=== PATIENT | female | born 1965 | race Caucasian/White ===

== ENCOUNTER 2017-02-07 16:40 | Inpatient (IN) | payer OTHER ==
[2017-02-07 17:52] VITALS: BMI 57.6
--- NOTE | 2017-02-07 19:35 | HP ---
COWS - Scale Resting Pulse: 4= OR > 121 Sweatin= Chills/Flushing Restless Observation: 3= Extraneous Movement Pupil Size: 0= Normal to Room Light Bone or Joint Aches: 2= Severe Diffuse Aches Runny Nose/ Eye Tearin= Nasal Congestion GI Upset > 30mins: 1= Stomach Cramp Tremor Observation: 1= Tremor [place], Not Seen Yawning Observation: 0= None Anxiety or Irritability: 1=Feels Anxious/Irritable Goose Flesh Skin: 0=Smooth Skin COWS Score: 14 CIWA Score - CIWA Score Nausea/Vomitin-Mild Nausea/No Vomiting Muscle Tremors: 3 Anxiety: 3 Agitation: 4-Moderately Restless Paroxysmal Sweats: 1-Minimal Palms Moist Orientation: 0-Oriented Tacttile Disturbances: 0-None Auditory Disturbances: 0-None Visual Disturbances: 0-None Headache: 0-None Present CIWA-Ar Total Score: 12 Admission ROS S - HPI Chief Complaint: WITHDRAWAL SX Allergies/Adverse Reactions: Allergies Allergy/AdvReac Type Severity Reaction Status Date / Time No Known Allergies Allergy Unverified 02/07/17 18:42 History of Present Illness: 51 YEARS OLD FEMALE WITH LONG HISTORY OF OPIOID XANAX NICOTINE DEPENDENCE HAS DIABETES II ASTHMA AND BIPOLAR II AMBULATE WITH WALKER IS ADMITTED TO DETOX Exam Limitations: No Limitations - Ebola screening Have you traveled outside of the country in the last 21 days: No (N) Have you had contact with anyone from an Ebola affected area: No Have you been sick,other than usual withdrawal symptoms: No Do you have a fever: No - Review of Systems Constitutional: Chills, Changes in sleep, Weight Stable EENT: reports: No Symptoms Reported Respiratory: reports: SOB with Exertion, Productive cough (WHITE) Cardiac: reports: No Symptoms Reported GI: reports: Nausea, Poor Fluid Intake, Indigestion, Abdominal cramping : reports: No Symptoms Reported Musculoskeletal: reports: Back Pain, Joint Pain, Muscle Pain, Muscle Weakness ( KNEE RIGHT), Neck Pain Integumentary: reports: No Symptoms Reported Neuro: reports: Tremors Endocrine: reports: No Symptoms Reported Hematology: reports: No Symptoms Reported Psychiatric: reports: Judgement Intact, Orientated x3, Anxious, Depressed Other Systems: Reviewed and Negative Patient History - Patient Medical History Hx Anemia: No Hx Asthma: Yes Hx Chronic Obstructive Pulmonary Disease (COPD): No Hx Cancer: No Hx Cardiac Disorders: No Hx Congestive Heart Failure: No Hx Hypertension: No Hx Hypercholesterolemia: No Hx Pacemaker: No HX Cerebrovascular Accident: No Hx Seizures: No Hx Dementia: No Hx Diabetes: Yes Hx Gastrointestinal Disorders: No Hx Liver Disease: No Hx Genitourinary Disorders: No Hx Sexually Transmitted Disorders: Yes (SYPHILIS 1983) Hx Renal Disease (ESRD): No Hx Thyroid Disease: No Hx Human Immunodeficiency Virus (HIV): No Hx Hepatitis C: No Hx Depression: No Hx Suicide Attempt: No Hx Bipolar Disorder: Yes Hx Schizophrenia: No - Patient Surgical History Past Surgical History: No Hx Neurologic Surgery: Yes (BACK 2014) Hx Cataract Extraction: No Hx Cardiac Surgery: No Hx Lung Surgery: No Hx Breast Surgery: No Hx Breast Biopsy: No Hx Abdominal Surgery: No Hx Appendectomy: No Hx Cholecystectomy: No Hx Genitourinary Surgery: No Hx Section: No Hx Orthopedic Surgery: Yes (RIGHT KNEE 2000) Hx Hysterectomy: No Anesthesia Reaction: No - PPD History Previous Implant?: Yes Documented Results: Negative w/proof Implanted On Prior R Admission?: No PPD to be Administered?: Yes - Reproductive History Patient is a Female of Child Bearing Age (11 -55 yrs old): Yes Last Menstrual Period: 02/07/15 Patient : No - Smoking Cessation Smoking history: Current every day smoker Have you smoked in the past 12 months: Yes Aproximately how many cigarettes per day: 40 Cigars Per Day: 0 Hx Chewing Tobacco Use: No Initiated information on smoking cessation: Yes 'Breaking Loose' booklet given: 02/07/17 - Substance & Tx. History Hx Alcohol Use: No Hx Substance Use: Yes Substance Use Type: Opiates, Tranquilizers Hx Substance Use Treatment: Yes (2009 [facility]) - Substances Abused Heroin Route: Inhalation Frequency: Daily Amount used: 15 BAGS Age of first use: 26 Date of Last Use: 02/06/17 Benzodiazepine (Klonopin) Route: Oral Frequency: Daily Amount used: 1 MG Age of first use: 46 Date of Last Use: 02/07/17 Family Disease History - Family Disease History Family Disease History: [place]: Mother, Respiratory: Father, Other: Father, Mother, Brother () Admission Physical Exam [facility] - Vital Signs Vital Signs: Vital Signs - 24 hr 08/15/17 17:49 Temperature 97.2 F L Pulse Rate 130 H Respiratory 20 Rate Blood Pressure 111/62 - Physical General Appearance: Yes: Appropriately Dressed, Mild Distress, Obese, Tremorous , Irritable, Sweating, Anxious HEENTM: Yes: Hearing grossly Normal, Normal ENT Inspection, Normocephalic, Normal Voice Respiratory: Yes: Chest Non-Tender, No Respiratory Distress, No Accessory Muscle Use, Wheezing Neck: Yes: Supple, Trachea in good position Breast: Yes: Breasts Symetrical Cardiology: Yes: Regular Rhythm, S1, S2, Tachycardia Abdominal: Yes: Normal Bowel Sounds, Non Tender, Soft Genitourinary: Yes: Within Normal Limits Back: Yes: Normal Inspection, Surgical Scar Musculoskeletal: Yes: Gait Steady, Muscle Pain (RIGHT KNEE), Muscle weakness Extremities: Yes: Non-Tender, Tremors Neurological: Yes: Alert, Normal Response, Depressed Affect Integumentary: Yes: Normal Color, Warm Lymphatic: Yes: Within Normal Limits - Diagnostic (1) Opioid dependence with withdrawal Current Visit: Yes Status: Acute (2) Nicotine dependence Current Visit: Yes Status: Acute Qualifiers: Nicotine product type: cigarettes Substance use status: in withdrawal Qualified Code(s): F17.213 - Nicotine dependence, cigarettes, with withdrawal (3) Bipolar II disorder Current Visit: Yes Status: Suspected (4) Walker as ambulation aid Current Visit: Yes Status: Chronic (5) Diabetes mellitus type II, controlled Current Visit: Yes Status: Chronic Qualifiers: Diabetes mellitus complication status: without complication Diabetes mellitus mcc insulin use: without mcc use Qualified Code(s): E11.9 - Type 2 diabetes mellitus without complications Comment: NO TREATMENT (6) Asthma Current Visit: Yes Status: Chronic Qualifiers: Asthma severity: mild persistent Asthma complication type: with status asthmaticus Qualified Code(s): J45.32 - Mild persistent asthma with status asthmaticus Cleared for Admission [facility] - Detox or Rehab [facility] Level of Care: Medically Managed Detox Regimen/Protocol: Methadone [facility] Breath Alcohol Content Breath Alcohol Content: 0 Urine Pregancy Test - Result Urine Test Results: Negative- NO Line Present Urine Drug Screen - Results Urine Drug Screen Results: OPI-Opiates, PCP-Phencyclidine, BZO-Benzodiazepines, MTD-Methadone
[2017-02-07] MEDS ORDERED: MAGNESIUM HYDROX 2400MG/30ML ORAL SUSPENSION 30 ML CUP PO PRN (19:47)
[2017-02-07] MEDS ORDERED: METHADONE HCL 10 MG TABLET (FOR DETOX USE ONLY) PO ONE ×3 (19:47→23:00)
[2017-02-07] MEDS ORDERED: guaiFENesin/D-METHORPHAN HB 10 ML UNIT-DOSE CUPS PO PRN (19:47)
[2017-02-07] MEDS ORDERED: MAG HYDROX/AL HYDROX/SIMETH 30 ML UNIT-DOSE CUP PO PRN (19:47)
[2017-02-07] MEDS ORDERED: NICOTINE POLACRILEX 4 MG GUM BC PRN (19:47)
[2017-02-07] MEDS ORDERED: diphenhydrAMINE HCL 50 MG CAPSULE PO PRN (19:47)
[2017-02-07] MEDS ORDERED: MENTHOL/PHENOL 1 EACH UD MM PRN (19:47)
[2017-02-07] MEDS ORDERED: ACETAMINOPHEN 325 MG TABLET (FP) PO PRN (19:47)
[2017-02-07] MEDS ORDERED: MAGNESIUM CITRATE 300 ML BOTTLE PO PRN (19:47)
[2017-02-07] MEDS ORDERED: P-EPHED 60MG/TRIPROLIDI 2.5MG TABLET PO PRN (19:47)
[2017-02-07] MEDS ORDERED: LOPERAMIDE HCL 2 MG CAPSULE PO PRN (19:47)
[2017-02-07] MEDS ORDERED: ALBUTEROL SO4 6.7 GM HFA INHALER IH PRN (19:49)
[2017-02-07] MEDS: diazePAM 5 MG TABLET PO PRN (22:03)
[2017-02-07] MEDS: BUDESONIDE/FORMETEROL FUMARATE 80/4.5 mcg INHALER IH SCH (22:03)
[2017-02-07] MEDS: THIAMINE HCL 100 MG TABLET (FP) PO SCH (22:05)
[2017-02-07 23:20] LABS: URINE APPEARANCE CLOUDY; URINE BLOOD NEGATIVE (NEGATIVE); URINE COLOR AMBER; URINE GLUCOSE (UA) NEGATIVE (NEGATIVE); URINE KETONE TRACE (NEGATIVE); URINE LEUK ESTERASE TRACE (NEGATIVE); URINE NITRITE NEGATIVE (NEGATIVE)
[2017-02-07 23:28] LABS: URINE PROTEIN 2+ (NEGATIVE)
[2017-02-07 23:56] LABS: URINE BACTERIA MODERATE /hpf (NONE SEEN); URINE HYALINE CAST 69 /lpf; URINE MUCUS MANY; URINE RBC 11 /hpf (0-3); URINE WBC 39 /hpf (3-5); YEAST FEW
[2017-02-08] MEDS ORDERED: METHADONE HCL 10 MG TABLET (FOR DETOX USE ONLY) PO ONE (10:00)
--- NOTE | 2017-02-08 10:14 | CONSULT ---
[facility] Psychiatric Consult - Data Date of interview: 02/08/17 Admission source: [facility] Identifying data: This is 51 years old female , obise, ambulating with cane, with psychiatric hospitalization history, history of Bipolar Disorder, intoxicated wioth: Heroin Klonopin and Nicotine Substance Abuse History: - Smoking Cessation. Smoking history: Current every day smoker. Have you smoked in the past 12 months: Yes. Aproximately how many cigarettes per day: 40. Cigars Per Day: 0. Hx Chewing Tobacco Use: No. Initiated information on smoking cessation: Yes. 'Breaking Loose' booklet given : 02/07/17. - Substance & Tx. History. Hx Alcohol Use: No. Hx Substance Use: Yes. Substance Use Type: Opiates, Tranquilizers. Hx Substance Use Treatment: Yes (2009). - Substances Abused. Heroin. Route: Inhalation. Frequency: Daily. Amount used: 15 BAGS. Age of first use: 26. Date of Last Use: 02/06/17. Benzodiazepine (Klonopin). Route: Oral. Frequency: Daily. Amount used: 1 MG. Age of first use: 46. Date of Last Use: 02/07/17 Medical History: Asthma, Obesity morbid, DM-2, Psychiatric History: Patient reports to carry [id number] disorder, reports most recent posychiatrioc admnission on at [facility] for safety, reports cirrently taking: Lamictal 50mg poqd. EffexorXL 225mg poqd Physical/Sexual Abuse/Trauma History: Denies Additional Comment: Lamictal 50mg poqd. EffexorXL 225mg poqd Mental Status Exam - Mental Status Exam Alert and Oriented to: Person Cognitive Function: Fair Patient Appearance: Unkempt Mood: Sad Affect: Flat Patient Behavior: Sedated Speech Pattern: Delayed Voice Loudness: Mildly Soft/Quiet Thought Process: Goal Oriented Thought Disorder: Being Controlled Hallucinations: Denies Suicidal Ideation: Denies Homicidal Ideation: Denies Insight/Judgement: Fair Sleep: Difficulty falling asleep Appetite: Weight gain Muscle strength/Tone: Mild Hypotonicity Gait/Station: Deferred Additional Comments: Lamictal 50mg poqd. EffexorXL 225mg poqd Psychiatric Findings - Problem List ([place] 1, 2,3) (1) Nicotine dependence Current Visit: Yes Status: Acute Qualifiers: Nicotine product type: cigarettes Substance use status: in withdrawal Qualified Code(s): F17.213 - Nicotine dependence, cigarettes, with withdrawal (2) Opioid dependence with withdrawal Current Visit: Yes Status: Acute (3) Bipolar II disorder Current Visit: Yes Status: Suspected (4) Benzodiazepine abuse Current Visit: Yes Status: Acute (5) Drug-induced mood disorder Current Visit: Yes Status: Acute - Initial Treatment Plan Initial Treatment Plan: Lamictal 50mg poqd. EffexorXL 225mg poqd
[2017-02-08 10:40] LABS: MCH 24.9 pg (25.7-33.7); MCHC 31.4 g/dl (32.0-36.0); MEAN CELL VOLUME 79.1 fl (80-96); MEAN PLT VOLUME 8.1 fl (7.5-11.1); PLATELET COUNT 261 K/MM3 (134-434); RDW 15.3 % (11.6-15.6); WHITE BLOOD COUNT 11.2 K/mm3 (4.0-10.0)
[2017-02-08 10:43] LABS: ALK PHOS 148 U/L (45-117); ANION GAP 5 (8-16); BILIRUBIN,TOTAL 0.4 mg/dL (0.2-1.0); CALCIUM 8.6 mg/dL (8.5-10.1); CO2 34 mmol/L (21-32); CREATININE 0.7 mg/dL (0.55-1.02); GLUCOSE,RANDOM 125 mg/dL (74-106); SGOT/AST 9 U/L (15-37); SGPT/ALT 10 U/L (12-78); TOT PROT 6.3 g/dl (6.4-8.2)
[2017-02-08] MEDS: ASPIRIN 81 MG CHEWABLE TABLETS PO SCH (10:44)
[2017-02-08] MEDS: BUDESONIDE/FORMETEROL FUMARATE 80/4.5 mcg INHALER IH SCH ×2 (10:44→22:43)
[2017-02-08] MEDS: PRENATAL VITAMINS W/ FOLIC ACID TABLET (FP) PO SCH (10:44)
[2017-02-08] MEDS: lamoTRIgine 25 MG TABLET PO SCH (10:46)
[2017-02-08] MEDS: diazePAM 5 MG TABLET PO PRN ×2 (10:46→22:43)
[2017-02-08] MEDS: NICOTINE 21 MG/24 HOURS TOPICAL PATCH TD SCH (10:47)
[2017-02-08] MEDS ORDERED: IBUPROFEN 400 MG TABLET (FP) PO PRN (11:02)
--- NOTE | 2017-02-08 11:15 | PN ---
[facility] CIWA - CIWA Score Nausea/Vomitin-No Nausea/No Vomiting Muscle Tremors: 4-Moderate,w/Arms Extend Anxiety: 3 Agitation: 4-Moderately Restless Paroxysmal Sweats: 3 Orientation: 0-Oriented Tacttile Disturbances: 0-None Auditory Disturbances: 0-None Visual Disturbances: 0-None Headache: 0-None Present CIWA-Ar Total Score: 14 [facility]HS COWS - Scale Resting Pulse: 2= [place] 101-120 Sweatin=Flushed/Facial Moisture Restless Observation: 1= Difficult to Sit Still Pupil Size: 0= Normal to Room Light Bone or Joint Aches: 2= Severe Diffuse Aches Runny Nose/ Eye Tearin= Runny Nose/Eyes GI Upset > 30mins: 0= None Tremor Observation of Outstretched Hands: 2= Slight Tremor Visible Yawning Observation: 0= None Anxiety or Irritability: 2=Irritable/Anxious Goose Flesh Skin: 3=Piloerection COWS Score: 16 S Progress Note (SOAP) Subjective: chronic body ache sweats shakes interrupted sleep agitation teary eyes Objective: 02/08/17 11:11 Vital Signs Temperature 97.9 F 02/08/17 10:00 Pulse Rate 102 02/08/17 00:00 Respiratory Rate 20 02/08/17 10:00 Blood Pressure 133/76 02/08/17 10:00 O2 Sat by Pulse Oximetry (%) Laboratory Tests 02/07/17 02/08/17 02/08/17 23:11 05:22 07:00 WBC 11.2 H RBC 4.19 Hgb 10.4 L Hct 33.1 MCV 79.1 L MCH 24.9 L MCHC 31.4 L RDW 15.3 Plt Count 261 MPV 8.1 Sodium Potassium Chloride Carbon Dioxide Anion Gap BUN Creatinine Creat Clearance w eGFR POC Glucometer 138 Random Glucose Calcium Total Bilirubin AST ALT Alkaline Phosphatase Total Protein Albumin Urine Color Adela Urine Appearance Cloudy Urine pH 5.0 Urine Protein 2+ H Urine Glucose (UA) Negative Urine Ketones Trace H Urine Blood Negative Urine Nitrite Negative Urine Bilirubin 4.0 Urine Urobilinogen 2.0 H Ur Leukocyte Esterase Trace Urine RBC 11 Urine WBC 39 Ur Epithelial Cells Many Urine Bacteria Moderate Hyaline Casts 69 Urine Mucus Many Urine Yeast Few 02/08/17 07:00 WBC RBC Hgb Hct MCV MCH MCHC RDW Plt Count MPV Sodium 140 Potassium 4.1 Chloride 101 Carbon Dioxide 34 H Anion Gap 5 L BUN 12 Creatinine 0.7 Creat Clearance w eGFR > 60 POC Glucometer Random Glucose 125 H Calcium 8.6 Total Bilirubin 0.4 AST 9 L ALT 10 L Alkaline Phosphatase 148 H Total Protein 6.3 L Albumin 3.0 L Urine Color Urine Appearance Urine pH Urine Protein Urine Glucose (UA) Urine Ketones Urine Blood Urine Nitrite Urine Bilirubin Urine Urobilinogen Ur Leukocyte Esterase Urine RBC Urine WBC Ur Epithelial Cells Urine Bacteria Hyaline Casts Urine Mucus Urine Yeast repeat u/a awake/alert ambulating with walker safely no acute distress Assessment: 02/08/17 11:13 withdrawal sx Plan: continue detox increase fluids lidocaine patch motrin 800mg prn flexiril 10mg prn analgesic balm clondine 0.1mg bid with parameters
[2017-02-08] MEDS: cloNIDine HCL 0.1 MG TABLET PO SCH ×2 (12:54→22:43)
[2017-02-08] MEDS: VENLAFAXINE HCL 75 MG E.R. CAPSULES (FP) PO SCH (12:54)
[2017-02-08] MEDS: CYCLOBENZAPRINE HCL 10 MG TABLET (FP) PO PRN ×2 (12:54→22:45)
[2017-02-08] MEDS: VENLAFAXINE HCL 150 MG E.R. CAPSULE PO SCH (12:54)
[2017-02-08] MEDS: LIDOCAINE 5% TOPICAL PATCH TP SCH (12:54)
[2017-02-08] MEDS: INSULIN SLIDING SCALE (NOVOLOG) 1 VIAL SQ SCH (17:11)
--- NOTE | 2017-02-08 20:01 | EKG ---
Test Reason : Blood Pressure : / mmHG Vent. Rate : 119 BPM Atrial Rate : 119 BPM P-R Int : 156 ms QRS Dur : 076 ms QT Int : 322 ms P-R-T Axes : 048 058 053 degrees QTc Int : 452 ms SINUS TACHYCARDIA OTHERWISE NORMAL ECG WHEN COMPARED WITH ECG OF 26-JUL-2004 13:32, VENT. RATE HAS INCREASED BY 41 BPM NONSPECIFIC T WAVE ABNORMALITY NOW EVIDENT IN INFERIOR LEADS Confirmed by LUZ PERRY MD ([id number]) on 02/08/2017 8:01:17 PM Referred By: Confirmed By:LUZ PERRY MD
[2017-02-08 20:29] LABS: URINE APPEARANCE SLCLOUDY; URINE BILIRUBIN NEGATIVE (NEGATIVE); URINE BLOOD NEGATIVE (NEGATIVE); URINE COLOR YELLOW; URINE GLUCOSE (UA) NEGATIVE (NEGATIVE); URINE KETONE NEGATIVE (NEGATIVE); URINE LEUK ESTERASE NEGATIVE (NEGATIVE); URINE NITRITE NEGATIVE (NEGATIVE); URINE PROTEIN NEGATIVE (NEGATIVE); URINE UROBILINOGEN NEGATIVE mg/dL (0.2-1.0)
[2017-02-08] MEDS ORDERED: LIDOCAINE PATCH REMOVAL MC SCH (22:00)
[2017-02-08] MEDS: THIAMINE HCL 100 MG TABLET (FP) PO SCH (22:43)
[2017-02-09] MEDS: INSULIN SLIDING SCALE (NOVOLOG) 1 VIAL SQ SCH ×2 (07:45→12:29)
[2017-02-09] MEDS: diazePAM 5 MG TABLET PO PRN (08:02)
[2017-02-09] MEDS ORDERED: METHADONE HCL 5 MG TABLET (FOR DETOX USE ONLY) PO ONE (10:00)
[2017-02-09] MEDS: lamoTRIgine 25 MG TABLET PO SCH (10:25)
[2017-02-09] MEDS: VENLAFAXINE HCL 75 MG E.R. CAPSULES (FP) PO SCH (10:25)
[2017-02-09] MEDS: ASPIRIN 81 MG CHEWABLE TABLETS PO SCH (10:25)
[2017-02-09] MEDS: cloNIDine HCL 0.1 MG TABLET PO SCH (10:25)
[2017-02-09] MEDS: VENLAFAXINE HCL 150 MG E.R. CAPSULE PO SCH (10:25)
[2017-02-09] MEDS: BUDESONIDE/FORMETEROL FUMARATE 80/4.5 mcg INHALER IH SCH (10:25)
[2017-02-09] MEDS: PRENATAL VITAMINS W/ FOLIC ACID TABLET (FP) PO SCH (10:25)
[2017-02-09] MEDS: CYCLOBENZAPRINE HCL 10 MG TABLET (FP) PO PRN (10:27)
[2017-02-09] MEDS: LIDOCAINE 5% TOPICAL PATCH TP SCH (10:31)
[2017-02-09] MEDS: NICOTINE 21 MG/24 HOURS TOPICAL PATCH TD SCH (10:31)
[2017-02-09 10:39] VITALS: BP 118/68; PULSE 88; TEMP 96.6
--- NOTE | 2017-02-09 11:21 | PN ---
[facility] CIWA - CIWA Score Nausea/Vomitin-No Nausea/No Vomiting Muscle Tremors: 4-Moderate,w/Arms Extend Anxiety: 3 Agitation: 3 Paroxysmal Sweats: 3 Orientation: 0-Oriented Tacttile Disturbances: 0-None Auditory Disturbances: 0-None Visual Disturbances: 0-None Headache: 0-None Present CIWA-Ar Total Score: 13 BHS COWS - Scale Resting Pulse: 1= [place] 81-100 Sweatin=Flushed/Facial Moisture Restless Observation: 1= Difficult to Sit Still Pupil Size: 0= Normal to Room Light Bone or Joint Aches: 2= Severe Diffuse Aches Runny Nose/ Eye Tearin= Runny Nose/Eyes GI Upset > 30mins: 1= Stomach Cramp Tremor Observation of Outstretched Hands: 2= Slight Tremor Visible Yawning Observation: 2= >3x During Session Anxiety or Irritability: 2=Irritable/Anxious Goose Flesh Skin: 0=Smooth Skin COWS Score: 15 [facility] Progress Note (SOAP) Subjective: chronic body aches sweats irritable interrupted sleep Objective: 02/09/17 11:20 Vital Signs Temperature 96.6 F L 02/09/17 10:38 Pulse Rate 88 02/09/17 10:38 Respiratory Rate 18 02/09/17 10:38 Blood Pressure 118/68 02/09/17 10:38 O2 Sat by Pulse Oximetry (%) Laboratory Tests 02/07/17 02/07/17 02/08/17 20:04 23:11 05:22 WBC RBC Hgb Hct MCV MCH MCHC RDW Plt Count MPV Sodium Potassium Chloride Carbon Dioxide Anion Gap BUN Creatinine Creat Clearance w eGFR POC Glucometer 138 Random Glucose Calcium Total Bilirubin AST ALT Alkaline Phosphatase Total Protein Albumin Urine Color Yellow Adela Urine Appearance Slcloudy Cloudy Urine pH 6.0 5.0 Ur Specific [place] 1.025 >= 1.030 H Urine Protein Negative 2+ H Urine Glucose (UA) Negative Negative Urine Ketones Negative Trace H Urine Blood Negative Negative Urine Nitrite Negative Negative Urine Bilirubin Negative 4.0 Urine Urobilinogen Negative 2.0 H Ur Leukocyte Esterase Negative Trace Urine RBC 11 Urine WBC 39 Ur Epithelial Cells Many Urine Bacteria Moderate Hyaline Casts 69 Urine Mucus Many Urine Yeast Few RPR Titer 02/08/17 02/08/17 02/08/17 07:00 07:00 07:00 WBC 11.2 H RBC 4.19 Hgb 10.4 L Hct 33.1 MCV 79.1 L MCH 24.9 L MCHC 31.4 L RDW 15.3 Plt Count 261 MPV 8.1 Sodium 140 Potassium 4.1 Chloride 101 Carbon Dioxide 34 H Anion Gap 5 L BUN 12 Creatinine 0.7 Creat Clearance w eGFR > 60 POC Glucometer Random Glucose 125 H Calcium 8.6 Total Bilirubin 0.4 AST 9 L ALT 10 L Alkaline Phosphatase 148 H Total Protein 6.3 L Albumin 3.0 L Urine Color Urine Appearance Urine pH Ur Specific [place] Urine Protein Urine Glucose (UA) Urine Ketones Urine Blood Urine Nitrite Urine Bilirubin Urine Urobilinogen Ur Leukocyte Esterase Urine RBC Urine WBC Ur Epithelial Cells Urine Bacteria Hyaline Casts Urine Mucus Urine Yeast RPR Titer Nonreactive 02/08/17 02/08/17 02/09/17 11:37 16:16 07:43 WBC RBC Hgb Hct MCV MCH MCHC RDW Plt Count MPV Sodium Potassium Chloride Carbon Dioxide Anion Gap BUN Creatinine Creat Clearance w eGFR POC Glucometer 247 134 119 Random Glucose Calcium Total Bilirubin AST ALT Alkaline Phosphatase Total Protein Albumin Urine Color Urine Appearance Urine pH Ur Specific [place] Urine Protein Urine Glucose (UA) Urine Ketones Urine Blood Urine Nitrite Urine Bilirubin Urine Urobilinogen Ur Leukocyte Esterase Urine RBC Urine WBC Ur Epithelial Cells Urine Bacteria Hyaline Casts Urine Mucus Urine Yeast RPR Titer awake/alert ambulating with walker no acute distress pt denies any s/s of UTI Assessment: 02/09/17 11:21 withdrawal sx Plan: continue detox increase fluids manage pain with motrin,patches,analgesic as ordered.
[2017-02-09] MEDS ORDERED: INSULIN (NOVOLOG) ASPART 100 UNITS/ML 10ML VIAL ONE (12:27)
--- NOTE | 2017-02-09 13:58 | PN ---
[facility] Progress Note Note: pt states " I want go home" pt refused to elaborate. Pt signed out AMA.
--- NOTE | 2017-02-09 14:09 | DS ---
[facility] Detox Discharge Summary Admission Date: 02/07/17 - History Present History: Opioid Dependence, Sedative Dependence - Physical Exam Results Vital Signs: Vital Signs Temperature 96.6 F L 02/09/17 10:38 Pulse Rate 88 02/09/17 10:38 Respiratory Rate 18 02/09/17 10:38 Blood Pressure 118/68 02/09/17 10:38 O2 Sat by Pulse Oximetry (%) - Treatment Hospital Course: Discharged Condition Good - Medication Discharge Medications: Ambulatory Orders Aspirin [ASA -] 81 mg PO DAILY 02/07/17 Hydroxyzine HCl [Atarax -] 25 mg PO HS 02/07/17 Lamotrigine [Lamictal -] 50 mg PO DAILY 02/07/17 Meloxicam [Mobic (Nf) -] 7.5 mg PO DAILY 02/07/17 Pantoprazole Sodium [Protonix -] 40 mg PO DAILY 02/07/17 Tizanidine HCl 2 mg PO DAILY 02/07/17 Venlafaxine HCl ER [Effexor Xr -] 75 mg PO DAILY 02/07/17 Venlafaxine HCl ER [Effexor Xr -] 150 mg PO DAILY 02/07/17 Lamotrigine [Lamictal -] 50 mg PO DAILY #30 tablet 02/08/17 Venlafaxine HCl ER [Effexor Xr -] 75 mg PO DAILY #30 cap 02/08/17 Venlafaxine HCl ER [Effexor Xr -] 150 mg PO DAILY #30 cap 02/08/17 - Diagnosis (1) Benzodiazepine abuse Current Visit: Yes Status: Chronic (2) Drug-induced mood disorder Current Visit: Yes Status: Acute (3) Nicotine dependence Current Visit: Yes Status: Chronic Qualifiers: Nicotine product type: cigarettes Substance use status: uncomplicated Qualified Code(s): F17.210 - Nicotine dependence, cigarettes, uncomplicated (4) Opioid dependence with withdrawal Current Visit: Yes Status: Chronic (5) Asthma Current Visit: Yes Status: Chronic Qualifiers: Asthma severity: mild persistent Asthma complication type: with status asthmaticus Qualified Code(s): J45.32 - Mild persistent asthma with status asthmaticus (6) Diabetes mellitus type II, controlled Current Visit: Yes Status: Chronic Qualifiers: Diabetes mellitus complication status: without complication Diabetes mellitus terminal manager insulin use: without shelter use Qualified Code(s): E11.9 - Type 2 diabetes mellitus without complications (7) Walker as ambulation aid Current Visit: Yes Status: Chronic (8) Bipolar II disorder Current Visit: Yes Status: Suspected - AMA Did Patient Leave Against Medical Advice: Yes
[2017-02-09] MEDS ORDERED: INSULIN (NOVOLOG) ASPART 100 UNITS/ML 10ML VIAL SQ ONE (15:19)
[2017-02-10] MEDS ORDERED: METHADONE HCL 5 MG TABLET (FOR DETOX USE ONLY) PO ONE (10:00)
[2017-02-11] MEDS ORDERED: METHADONE HCL 10 MG TABLET (FOR DETOX USE ONLY) PO ONE (10:00)
[2017-02-12] MEDS ORDERED: METHADONE HCL 5 MG TABLET (FOR DETOX USE ONLY) PO ONE (06:00)
== END 2017-02-09 14:32 | disposition left against medical advice (07) | DRG 770 ==
LOC: YASAS 16:40 → Y6N 19:04
PROVIDERS: ADMIT Internal Medicine; ATTEND Internal Medicine
PROC: HZ2ZZZZ Detoxification Services for Substance Abuse Treatment (ICD-10-PCS; principal; 2017-02-07)
DX: F11.23 Opioid dependence with withdrawal (principal); F13.10 Sedative, hypnotic or anxiolytic abuse, uncomplicated; F17.210 Nicotine dependence, cigarettes, uncomplicated; F31.81 Bipolar II disorder; E11.9 Type 2 diabetes mellitus without complications; J45.32 Mild persistent asthma with status asthmaticus; R00.0 Tachycardia, unspecified; R26.2 Difficulty in walking, not elsewhere classified; E66.01 Morbid (severe) obesity due to excess calories; Z68.43 Body mass index [BMI] 50.0-59.9, adult; Z99.89 Dependence on other enabling machines and devices; Z79.82 Long term (current) use of aspirin; Z87.42 Personal history of other diseases of the female genital tract
CPT/HCPCS: 36415; 80053; 81003; 81015; 85027; 86593; 93005; 93010